=== PATIENT | female | born 1995 | race Caucasian/White ===

== ENCOUNTER 2019-12-19 20:34 | Emergency (ER) | payer OTHER ==
[~2019-12-19] VITALS: Ht 160 cm; Wt 54.4 kg
--- NOTE | 2019-12-19 21:10 | NUR ---
FIRST CONTACT WITH PT. SITTING UP IN [facility], NAD NOTED. SMALL NAIL NOTED AT BASE OF L FIRST FINGER. NO BLEEDING OR DISCOLORATION. UNKNOWN TETANUS
[2019-12-19] MEDS ORDERED: CEFAZOLIN 1,000 MG IM ONE (22:00)
--- NOTE | 2019-12-19 22:17 | NUR ---
REPORT TO MANI GONZALEZ
--- NOTE | 2019-12-19 22:17 | NUR ---
Note sirisha in ED - 12/19/19 at 2218 by KARISSA REPORT RECEIVED FROM BORA SINGLETON. PT RESTING IN [facility], NAD, RESP WNL, P/W/D, WCTM. CALL LIGHT ON LAP.
--- NOTE | 2019-12-19 22:17 | NUR ---
PT MEDICATED PER EMAR. AWAITING XRAY RESULTS FOR DC
--- NOTE | 2019-12-19 22:18 | NUR ---
REPORT RECEIVED FROM KINGSTON SINGLETON. PT RESTING IN [facility], NAD, RESP WNL, P/W/D, WCTM. CALL LIGHT ON LAP.
[2019-12-19 22:36] VITALS: BP 97/64
--- NOTE | 2019-12-19 22:39 | NUR ---
Patient given discharge instructions and they have confirmed that they understand the instructions. Patient ambulatory with steady gait. Denies additional questions at this time, NAD, RESP WNL, VSS, P/W/D, MAEx4, FCS no SOB.
== END 2019-12-19 22:40 ==
LOC: ED 22:34
DX: S61.441A Puncture wound with foreign body of right hand, initial encounter (principal); X58.XXXA Exposure to other specified factors, initial encounter; Y93.89 Activity, other specified; Y92.89 Other specified places as the place of occurrence of the external cause; Y99.8 Other external cause status
CPT/HCPCS: 73120; 73130; 96372; 99284; J0690

== ENCOUNTER 2020-09-25 09:05 | Outpatient (CLI) | payer OTHER | END 2020-09-25 23:59 | disposition home or self-care (01) | LOC: RAD 09:05 → MERGE 09:05 → RAD 23:59 | PROVIDERS: ATTEND Nurse Practitioner Family | DX: Z02.9 Encounter for administrative examinations, unspecified (principal) ==

== ENCOUNTER 2020-09-25 09:19 | Outpatient (CLI) | payer OTHER | END 2020-09-25 23:59 | disposition home or self-care (01) | LOC: CARD 09:19 | PROVIDERS: ATTEND Nurse Practitioner Family | DX: G40.909 Epilepsy, unspecified, not intractable, without status epilepticus (principal) | CPT/HCPCS: 95819 ==